=== PATIENT | female | born 1950 | race Caucasian/White ===

== ENCOUNTER → 2024-05-04 15:23 | Outpatient (REF) | payer MEDICARE, SELFPAY | LOC: WDC 15:23 | PROVIDERS: ATTENDING PHYSICIAN Nurse Practitioner Family | DX: Z12.31 Encounter for screening mammogram for malignant neoplasm of breast (principal) | CPT/HCPCS: 77063; 77067 ==

== ENCOUNTER → 2025-05-05 11:18 | Outpatient (REF) | payer MEDICARE, SELFPAY | LOC: RAD 11:18 | PROVIDERS: ATTENDING PHYSICIAN Nurse Practitioner Family | DX: M25.511 Pain in right shoulder (principal); M25.562 Pain in left knee | CPT/HCPCS: 73030; 73564 ==